=== PATIENT | male | born 1955 | race Caucasian/White ===

== ENCOUNTER 2018-10-20 15:07 | Emergency (ER) | payer OTHER ==
[2018-10-20] MEDS ORDERED: IOVERSOL 320 100 ML VIAL IVP ONE ×3 (15:08→17:33)
[2018-10-20] MEDS ORDERED: HYDROmorphone 1 MG/ML CARPUJECT IVP STA ×2 (15:32→16:06)
[2018-10-20] MEDS ORDERED: KETOROLAC 30 MG/ML VIAL IVP STA (15:32)
[2018-10-20] MEDS ORDERED: ONDANSETRON 4 MG/2 ML VIAL IVP STA (15:32)
--- NOTE | 2018-10-20 15:40 | ED Physician Documentation ---
PD HPI BACK PAIN - Stated complaint Stated Complaint: BACK PX - Chief complaint Chief Complaint: Back Pain - History obtained from History obtained from: Patient, Family - History of Present Illness Timing - onset: Today (Severe nonradiating right flank and right lower back pain that started suddenly at about 11 AM. It did not start with heavy lifting. But twisting does make it worse. He is never had this before. He vomited once. His gave him a hydrocodone which was not helpful. No history of renal colic. No urinary complaints.) Review of Systems Constitutional: reports: Reviewed and negative Throat: reports: Reviewed and negative Cardiac: reports: Reviewed and negative Respiratory: reports: Reviewed and negative PD PAST MEDICAL HISTORY - Past Medical History Past Medical History: No Cardiovascular: High cholesterol Respiratory: None Neuro: None Endocrine/Autoimmune: None GI: GERD : None HEENT: None Psych: None Musculoskeletal: Other Derm: None - Past Surgical History Past Surgical History: Yes General: Colonoscopy, Other - Present Medications Home Medications: Ambulatory Orders Medication Instructions Recorded Confirmed Naproxen Sodium [Aleve] 05/29/13 05/29/13 Pravastatin Sodium 40 mg PO 05/29/13 05/29/13 Ondansetron Odt [Zofran] 4 mg TL Q6H PRN #10 tablet 10/20/18 Oxycodone HCl/Acetaminophen 1 - 2 each PO Q6H PRN #14 tablet 10/20/18 [Percocet 5-325 mg Tablet] - Allergies Allergies/Adverse Reactions: Allergies Allergy/AdvReac Type Severity Reaction Status Date / Time No Known Drug Allergies Allergy Verified 10/20/18 15:24 - Social History Does the pt smoke?: No Smoking Status: Former smoker Does the pt drink ETOH?: Yes Does the pt have substance abuse?: No - Family History Family history: reports: Non contributory - Immunizations Immunizations are current?: Yes - POLST Patient has POLST: No PD ED PE NORMAL - Vitals Vital signs reviewed: Yes - General General: Alert and oriented X 3, Other (Writhing and uncomfortable) - HEENT HEENT: PERRL, EOMI - Neck Neck: Supple, no meningeal sign, No bony TTP - Cardiac Cardiac: RRR, No murmur - Respiratory Respiratory: No respiratory distress, Clear bilaterally - Abdomen Abdomen: Soft, Non tender - Back Back: No CVA TTP, No spinal TTP - Extremities Extremities: Other (The patient has equal and normal Achilles and patellar reflexes bilaterally. Normal sensation in all areas of the legs. Patient denies saddle anesthesia. Normal strength in flexion-extension at the ankles, knees, and flexion of the hips.) - Neuro Neuro: Alert and oriented X 3, Normal speech Results - Vitals Vitals: Vital Signs - 24 hr 10/20/18 10/20/18 10/20/18 15:16 17:55 19:10 Temperature 36.2 C L Heart Rate 90 78 68 Respiratory 16 18 18 Rate Blood Pressure 126/84 H 131/87 H 145/101 H O2 Saturation 99 91 L 96 Oxygen O2 Source Room air - Labs Labs: Laboratory Tests 10/20/18 10/20/18 10/20/18 15:40 15:40 15:50 WBC 5.9 RBC 4.51 L Hgb 14.2 Hct 42.0 MCV 93.2 MCH 31.5 H MCHC 33.8 RDW 14.0 Plt Count 202 MPV 8.7 Neut # (Auto) 3.9 Lymph # (Auto) 1.6 [place] # (Auto) 0.3 Eos # (Auto) 0.0 Baso # (Auto) 0.0 Absolute Nucleated RBC 0.00 Nucleated RBC % 0.0 D-Dimer < 200.0 L Sodium 139 Potassium 3.8 Chloride 99 L Carbon Dioxide 27 Anion Gap 13.0 BUN 22 H Creatinine 0.8 Estimated GFR (MDRD) 97 Glucose 127 H Calcium 9.6 Total Bilirubin 0.8 AST 30 ALT 33 Alkaline Phosphatase 45 Total Protein 7.3 Albumin 4.2 Globulin 3.1 Albumin/Globulin Ratio 1.4 Lipase 24 Urine Color Urine Clarity Urine pH Ur Specific [place] Urine Protein Urine Glucose (UA) Urine Ketones Urine Occult Blood Urine Nitrite Urine Bilirubin Urine Urobilinogen Ur Leukocyte Esterase Ur Microscopic Review Urine Culture Comments 10/20/18 19:10 WBC RBC Hgb Hct MCV MCH MCHC RDW Plt Count MPV Neut # (Auto) Lymph # (Auto) [place] # (Auto) Eos # (Auto) Baso # (Auto) Absolute Nucleated RBC Nucleated RBC % D-Dimer Sodium Potassium Chloride Carbon Dioxide Anion Gap BUN Creatinine Estimated GFR (MDRD) Glucose Calcium Total Bilirubin AST ALT Alkaline Phosphatase Total Protein Albumin Globulin Albumin/Globulin Ratio Lipase Urine Color YELLOW Urine Clarity CLEAR Urine pH 6.5 Ur Specific [place] <=1.005 Urine Protein NEGATIVE Urine Glucose (UA) NEGATIVE Urine Ketones NEGATIVE Urine Occult Blood NEGATIVE Urine Nitrite NEGATIVE Urine Bilirubin NEGATIVE Urine Urobilinogen 0.2 (NORMAL) Ur Leukocyte Esterase NEGATIVE Ur Microscopic Review NOT INDICATED Urine Culture Comments NOT INDICATED - Rads (name of study) CT KUB Radiology: EMP read contemporaneously CT A/P with contrast Radiology: EMP read contemporaneously PD MEDICAL DECISION MAKING - ED course ED course: 63-year-old gentleman presents with acute Right flank pain most consistent with renal colic. There is no tenderness. However there was some worsening with motion. Initial CT was negative for acute findings with incidental findings were discussed with he and his . This was followed with IV contrast to evaluate the vasculature better, no new findings were appreciated. He improved with medications here and appeared much more comfortable. On repeat examination prior to discharge his abdomen and back were nontender. He was moving around and ambulating okay. I discussed with him that I would like him to return immediately if pain worsens or changes or if he develops any new symptoms or if not better in the next 12 to 24 hours. Departure - Departure Disposition: 01 Home, Self Care Clinical Impression: Right flank pain Condition: Good Record reviewed to determine appropriate education?: Yes Instructions: ED Abdominal Pain Unkn Cause Male Prescriptions: Ondansetron Odt [Zofran] 4 mg TL Q6H PRN #10 tablet PRN Reason: Nausea / Vomiting Oxycodone HCl/Acetaminophen [Percocet 5-325 mg Tablet] 1 - 2 each PO Q6H PRN #14 tablet PRN Reason: pain Comments: As discussed, return immediately for any new or worsening symptoms. Watch out for the rash of shingles as discussed. Return for a fever, or if not better in the next 12 hours. Follow-up with your doctor regardless. Forms: Activity restrictions
[2018-10-20 15:56] LABS: BASOPHILS % (AUTO) 0.7 %; EOSINOPHILS % (AUTO) 0.7 %; HGB - HEMOGLOBIN 14.2 g/dL (14.0-18.0); LYMPHOCYTES # (AUTO) 1.6 10^3/uL (1.5-3.5); LYMPHOCYTES % (AUTO) 26.6 %; MEAN CORPUSCULAR HEMOGLOBIN 31.5 pg (27.0-31.0); MEAN CORPUSCULAR HGB CONC 33.8 g/dL (32.0-36.0); MEAN CORPUSCULAR VOLUME 93.2 fL (80.0-94.0); MEAN PLATELET VOLUME 8.7 fL (7.4-11.4); MONOCYTES # (AUTO) 0.3 10^3/uL (0.0-1.0); MONOCYTES % (AUTO) 4.9 %; NEUTROPHILS # (AUTO) 3.9 10^3/uL (1.5-6.6); NEUTROPHILS % (AUTO) 67.1 %; PLT - PLATELET COUNT 202 10^3/uL (130-450); RED BLOOD COUNT 4.51 10^6/uL (4.70-6.10); WHITE BLOOD COUNT 5.9 x10^3/uL (4.8-10.8)
[2018-10-20 16:06] LABS: ALBUMIN 4.2 g/dL (3.2-5.5); ALBUMIN/GLOBULIN RATIO 1.4 (1.0-2.2); BILIRUBIN,TOTAL 0.8 mg/dL (0.2-1.0); CALCIUM 9.6 mg/dL (8.5-10.3); CREATININE 0.8 mg/dL (0.6-1.2); TOTAL PROTEIN 7.3 g/dL (6.7-8.2)
--- NOTE | 2018-10-20 16:20 | CT Report ---
Reason: R flank pain Procedure Date: 10/20/2018 Accession Number: [id number] / [id number] Procedure: CT - Abdomen/Pelvis WO CPT Code: FULL RESULT: EXAM: CT ABDOMEN AND PELVIS (CT KUB) WITHOUT CONTRAST. EXAM DATE: 10/20/2018 03:59 PM. CLINICAL HISTORY: Right flank pain. COMPARISONS: None. TECHNIQUE: Routine axial helical CT imaging was performed through the abdomen and pelvis without IV contrast. Reconstructions: Coronal and sagittal. In accordance with CT protocol optimization, one or more of the following dose reduction techniques were utilized for this exam: automated exposure control, adjustment of mA and/or KV based on patient size, or use of iterative reconstructive technique. FINDINGS: Lung bases: No acute findings. Liver: Unremarkable. Gallbladder: Unremarkable. Bile ducts: Unremarkable. Pancreas: Unremarkable. Spleen: Unremarkable. Adrenals: Unremarkable. Kidneys: Left upper anterior exophytic renal mass with intermediate Hounsfield units of 32. This measures 1.4 cm. A couple of other renal cysts seen at the lower pole left kidney. No renal calculi. No hydronephrosis. No ureteral calculi or hydroureter. Small renal cyst midpole right kidney. Bowel: Normal appendix. Mild sigmoid diverticulosis without evidence for acute diverticulitis. No acute bowel findings are seen. No free fluid or free air. Pelvis: The bladder and remaining pelvic organs appear unremarkable. Vasculature: No acute findings. Bones: No acute bone findings. Degenerative changes of the spine. IMPRESSION: 1. No urinary tract stones or obstruction. 2. Normal appendix. 3. Mild sigmoid diverticulosis without evidence for acute diverticulitis. 4. Left upper anterior exophytic renal mass with intermediate Hounsfield units of 32. This measures 1.4 cm. This could represent a solid renal mass versus a complex cyst and further evaluation with a renal ultrasound is recommended. RADIA
--- NOTE | 2018-10-20 17:29 | CT Report ---
Reason: IV only, R flank pain Procedure Date: 10/20/2018 Accession Number: [id number] / [id number] Procedure: CT - Abdomen/Pelvis W CPT Code: FULL RESULT: EXAM: CT ABDOMEN AND PELVIS EXAM DATE: 10/20/2018 05:03 PM. CLINICAL HISTORY: IV only, right flank pain. COMPARISONS: ABDOMEN/PELVIS W/O 10/20/2018 3:51 PM. TECHNIQUE: Routine helical CT imaging was performed through the abdomen and pelvis. IV contrast: OPTI 320 90 ML. Enteric contrast: No. Reconstructions: Coronal and sagittal. In accordance with CT protocol optimization, one or more of the following dose reduction techniques were utilized for this exam: automated exposure control, adjustment of mA and/or KV based on patient size, or use of iterative reconstructive technique. FINDINGS: Lung Bases: Unremarkable. Liver: Normal. No masses. Gallbladder/Bile Ducts: Unremarkable. Spleen: Normal. Pancreas: Normal. Adrenal Glands: Normal. Kidneys: 2.8 and 2.5 cm cysts seen at the lower pole of the left kidney. No suspicious renal mass, stones or hydronephrosis. Peritoneal Cavity/Bowel: Diverticulosis without diverticulitis. No bowel obstruction, free air or fluid collections. The appendix is normal. Pelvic Organs: Normal. The bladder and visualized pelvic organs are within normal limits. Vasculature: No aneurysms or other significant abnormality. Bones: No significant abnormality. Other: None. IMPRESSION: 1. Diverticulosis without diverticulitis or other acute inflammatory process. 2. No urinary tract stones or obstructive changes. RADIA
[2018-10-20] MEDS ORDERED: PROMETHAZINE INJ 25 MG in SODIUM CHLORIDE 0.9% 50 ML IV STA (17:39)
[2018-10-20] MEDS ORDERED: MORPHINE 2 MG/ML SYRINGE IVP STA (17:39)
[2018-10-20] MEDS ORDERED: SODIUM CHLORIDE 0.9% 1,000 ML IV ONE (18:05)
[2018-10-20 19:15] LABS: BILIRUBIN,URINE NEGATIVE (NEGATIVE); GLUCOSE, URINE (UA) NEGATIVE (NEGATIVE); KETONES,URINE (UA) NEGATIVE (NEGATIVE); LEUKOCYTE ESTERASE, URINE NEGATIVE (NEGATIVE); NITRITE,URINE NEGATIVE (NEGATIVE); OCCULT BLOOD,URINE NEGATIVE (NEGATIVE); PH,URINE 6.5 PH (5.0-7.5); PROTEIN,URINE NEGATIVE (NEGATIVE); UROBILINOGEN,URINE 0.2 (NORMAL) E.U./dL (NORMAL)
[2018-10-20 19:16] LABS: CLARITY,URINE CLEAR (CLEAR)
[2018-10-20] MEDS ORDERED: oxyCODONE/ACET 5/325 Prepack 4 PO STA (19:35)
[2018-10-20] MEDS ORDERED: ONDANSETRON ODT 4 MG Prepack 2 TL STA (19:35)
[2018-10-20 21:16] VITALS: BP 145/101
== END 2018-10-20 19:49 | disposition home or self-care (01) ==
LOC: ED 15:07
DX: R10.9 Unspecified abdominal pain (principal); M54.5 Low back pain; R11.10 Vomiting, unspecified; K21.9 Gastro-esophageal reflux disease without esophagitis; Z87.891 Personal history of nicotine dependence
CPT/HCPCS: 36415; 74176; 74177; 80053; 81003; 83690; 85025; 85379; 96361; 96365; 96375; 96376; 99283; J1170; J2270; J7040; Q9967; 81001; 87086

== ENCOUNTER 2018-10-23 10:43 | Emergency (ER) | payer OTHER ==
[2018-10-23 12:50] LABS: BASOPHILS % (AUTO) 0.6 %; EOSINOPHILS # (AUTO) 0.1 10^3/uL (0.0-0.7); EOSINOPHILS % (AUTO) 0.9 %; HGB - HEMOGLOBIN 14.3 g/dL (14.0-18.0); LYMPHOCYTES # (AUTO) 1.6 10^3/uL (1.5-3.5); LYMPHOCYTES % (AUTO) 20.1 %; MEAN CORPUSCULAR HEMOGLOBIN 32.2 pg (27.0-31.0); MEAN CORPUSCULAR HGB CONC 34.5 g/dL (32.0-36.0); MEAN CORPUSCULAR VOLUME 93.6 fL (80.0-94.0); MEAN PLATELET VOLUME 8.8 fL (7.4-11.4); MONOCYTES # (AUTO) 0.4 10^3/uL (0.0-1.0); NEUTROPHILS # (AUTO) 5.8 10^3/uL (1.5-6.6); NEUTROPHILS % (AUTO) 73.4 %; PLT - PLATELET COUNT 188 10^3/uL (130-450); RED BLOOD COUNT 4.45 10^6/uL (4.70-6.10); RED CELL DISTRIBUTION WIDTH 13.6 % (12.0-15.0); WHITE BLOOD COUNT 7.9 x10^3/uL (4.8-10.8)
--- NOTE | 2018-10-23 12:54 | ED Physician Documentation ---
PD HPI ABD PAIN - Stated complaint Stated Complaint: RT FLANK PX - Chief complaint Chief Complaint: Back Pain - History obtained from History obtained from: Patient - History of Present Illness Timing - onset: How many days ago (5) Timing - duration: Days (5) Timing - details: Gradual onset, Still present Quality: Aching, Stabbing, Pain Location: Other (lateral right abd and right low back.) Improved by: Laying still. No: Eating Worsened by: Moving, Palpation. No: Eating, Breathing Associated symptoms: Other (no rash nor sores). No: Fever, Nausea, Vomiting, Dysuria, Hematuria Similar symptoms before: Has not had sx before Recently seen: Emergency Dept (3 days ago and had labs, UA and CT scan without specific finding.) Review of Systems Constitutional: denies: Fever, Chills Nose: denies: Rhinorrhea / runny nose, Congestion Throat: denies: Sore throat Cardiac: denies: Chest pain / pressure Respiratory: denies: Dyspnea, Cough GI: reports: Abdominal Pain. denies: Nausea, Vomiting, Constipation, Diarrhea : denies: Dysuria, Frequency Skin: denies: Rash, Lesions Musculoskeletal: reports: Back pain. denies: Neck pain Neurologic: denies: Generalized weakness, Focal weakness, Numbness PD PAST MEDICAL HISTORY - Past Medical History Cardiovascular: High cholesterol Respiratory: None Neuro: None Endocrine/Autoimmune: None GI: GERD : None HEENT: None Psych: None Musculoskeletal: Other Derm: None - Past Surgical History Past Surgical History: Yes General: Colonoscopy, Other - Present Medications Home Medications: Ambulatory Orders Medication Instructions Recorded Confirmed Naproxen Sodium [Aleve] 05/29/13 05/29/13 Pravastatin Sodium 40 mg PO 05/29/13 05/29/13 Ondansetron Odt [Zofran] 4 mg TL Q6H PRN #10 tablet 10/20/18 Oxycodone HCl/Acetaminophen 1 - 2 each PO Q6H PRN #14 tablet 10/20/18 [Percocet 5-325 mg Tablet] Dexamethasone [Decadron] 4 mg PO DAILY #5 tablet 10/23/18 Lidocaine Patch 5% [Lidoderm Patch] 1 patch TOP DAILY PRN #10 patch 10/23/18 Oxycodone HCl/Acetaminophen 1 - 2 each PO Q6H PRN #25 tablet 10/23/18 [Percocet 5-325 mg Tablet] - Allergies Allergies/Adverse Reactions: Allergies Allergy/AdvReac Type Severity Reaction Status Date / Time No Known Drug Allergies Allergy Verified 10/23/18 10:50 - Social History Does the pt smoke?: No Smoking Status: Former smoker Does the pt drink ETOH?: Yes Does the pt have substance abuse?: No - Immunizations Immunizations are current?: Yes - POLST Patient has POLST: No PD ED PE NORMAL - Vitals Vital signs reviewed: Yes - General General: Alert and oriented X 3, Well developed/nourished, Other (appears in pain) - Cardiac Cardiac: RRR, No murmur - Respiratory Respiratory: Clear bilaterally - Abdomen Abdomen: Normal bowel sounds, Soft, Non tender, Non distended - Back Back: No CVA TTP (back is tender lower than that, in the mid lumbar level lateral muscle, with area of tenderness locally that elicits the pain toward the anterior abd and thigh. ) - Derm Derm: Normal color, Warm and dry, No rash Results - Vitals Vitals: Vital Signs - 24 hr 10/23/18 10/23/18 10:47 14:08 Temperature 36.6 C Heart Rate 108 H 75 Respiratory 20 16 Rate Blood Pressure 143/110 H 154/95 H O2 Saturation 98 96 Oxygen O2 Source Room air - Labs Labs: Laboratory Tests 10/23/18 10/23/18 10/23/18 12:47 12:47 13:15 WBC 7.9 RBC 4.45 L Hgb 14.3 Hct 41.6 L MCV 93.6 MCH 32.2 H MCHC 34.5 RDW 13.6 Plt Count 188 MPV 8.8 Neut # (Auto) 5.8 Lymph # (Auto) 1.6 [place] # (Auto) 0.4 Eos # (Auto) 0.1 Baso # (Auto) 0.0 Absolute Nucleated RBC 0.01 Nucleated RBC % 0.1 Sodium 136 Potassium 3.8 Chloride 100 L Carbon Dioxide 27 Anion Gap 9.0 BUN 13 Creatinine 0.9 Estimated GFR (MDRD) 85 L Glucose 103 H Calcium 9.0 Total Bilirubin 0.8 AST 22 ALT 24 Alkaline Phosphatase 40 L Total Protein 6.8 Albumin 3.7 Globulin 3.1 Albumin/Globulin Ratio 1.2 Lipase 33 Urine Color YELLOW Urine Clarity CLEAR Urine pH 7.0 Ur Specific [place] 1.010 Urine Protein NEGATIVE Urine Glucose (UA) NEGATIVE Urine Ketones NEGATIVE Urine Occult Blood NEGATIVE Urine Nitrite NEGATIVE Urine Bilirubin NEGATIVE Urine Urobilinogen 0.2 (NORMAL) Ur Leukocyte Esterase NEGATIVE Ur Microscopic Review NOT INDICATED Urine Culture Comments NOT INDICATED PD MEDICAL DECISION MAKING - ED course Complexity details: reviewed old records, reviewed results (CT done 3 days ago without findings.), re-evaluated patient (pain better with IM meds, trigger point at right lateral lumbar muscle and lido patch. ), considered differential (had labs and CT 3 days ago without specific finding. Consider myofascial pain and is tender lateral right lumbar muscles. No rash seen, though could sound like shingles. ), d/w patient Departure - Departure Disposition: 01 Home, Self Care Clinical Impression: Right flank pain Condition: Stable Record reviewed to determine appropriate education?: Yes Instructions: ED Flank Pain Uncertain Cause Follow-Up: Geri Velasco MD [Primary Care Provider] - Prescriptions: Dexamethasone [Decadron] 4 mg PO DAILY #5 tablet Lidocaine Patch 5% [Lidoderm Patch] 1 patch TOP DAILY PRN #10 patch PRN Reason: pain Oxycodone HCl/Acetaminophen [Percocet 5-325 mg Tablet] 1 - 2 each PO Q6H PRN #25 tablet PRN Reason: pain Comments: Heat and gentle stretching to the area presuming some muscle stiffness or spasm. Continue some ibuprofen 600 mg 2-3 times a day for pain and inflammation. To that add Tylenol or Percocet as needed for pain. Use the lidocaine patch to the area daily to help with the pain as well. Decadron steroid for inflammation for the next 5 days as well. Recheck if not improving over the next couple of days. Return sooner if worsening or other symptoms develop. Forms: Activity restrictions Discharge Date/Time: 10/23/18 14:09
[2018-10-23 13:12] LABS: ALBUMIN 3.7 g/dL (3.2-5.5); ALBUMIN/GLOBULIN RATIO 1.2 (1.0-2.2); BILIRUBIN,TOTAL 0.8 mg/dL (0.2-1.0); CREATININE 0.9 mg/dL (0.6-1.2); TOTAL PROTEIN 6.8 g/dL (6.7-8.2)
[2018-10-23] MEDS ORDERED: HYDROmorphone 1 MG/ML CARPUJECT IM STA (13:18)
[2018-10-23] MEDS ORDERED: TRIAMCINOLONE 40 MG/ML VIAL IM STA (13:19)
[2018-10-23] MEDS ORDERED: LIDOCAINE PATCH 5% TOP STA (13:20)
[2018-10-23 13:25] LABS: BILIRUBIN,URINE NEGATIVE (NEGATIVE); GLUCOSE, URINE (UA) NEGATIVE (NEGATIVE); KETONES,URINE (UA) NEGATIVE (NEGATIVE); LEUKOCYTE ESTERASE, URINE NEGATIVE (NEGATIVE); NITRITE,URINE NEGATIVE (NEGATIVE); OCCULT BLOOD,URINE NEGATIVE (NEGATIVE); PROTEIN,URINE NEGATIVE (NEGATIVE); UROBILINOGEN,URINE 0.2 (NORMAL) E.U./dL (NORMAL)
[2018-10-23 13:39] LABS: CLARITY,URINE CLEAR (CLEAR)
[2018-10-23 14:10] VITALS: BP 154/95
== END 2018-10-23 14:09 | disposition home or self-care (01) ==
LOC: ED 10:43
DX: R10.9 Unspecified abdominal pain (principal); Z87.891 Personal history of nicotine dependence
CPT/HCPCS: 20552; 36415; 80053; 81003; 83690; 85025; 96372; 99283; A9270; J1170; 81001; 87086

== ENCOUNTER 2020-07-02 14:42 | Outpatient (CLI) | payer OTHER, MEDICARE | END 2020-07-02 14:43 | disposition home or self-care (01) | LOC: COV 14:42 | PROVIDERS: ATTEND Family Medicine | DX: U07.1 COVID-19 (principal) ==